=== PATIENT | female | born 1980 | race Caucasian/White ===

== ENCOUNTER 2017-07-14 21:16 | Emergency (ER) | payer MEDICAID, SELFPAY ==
[2017-07-14 21:17] VITALS: BP 124/81; PULSE 88; RESP 18; TEMP 36.7; O2SAT 98; BMI 32.9
--- NOTE | 2017-07-14 22:00 | RAD_ITS ---
STUDY: X-RAY - PELVIS AND LEFT HIP REASON FOR EXAM: Female, 36 years old. Injury TECHNIQUE: Radiological exam, hip, unilateral, with pelvis when performed; 2 or 3 views. COMPARISON: None. FINDINGS: There is a non-specific bowel gas pattern. Normal visualized soft tissue structures. Normal bilateral iliac wings, sacroiliac joints and visualized sacrum. Normal bilateral superior and inferior pubic rami. Normal bilateral ischial tuberosities. Normal visualized femoral head. Normal acetabulum. Normal hip joint. Subcortical cyst at the left femoral neck. Evidence of tubal ligation. Mild chronic stress-related changes at the symphysis pubis. RAD/Hip 2-3 Views with Pelvis IMPRESSION: No fracture Electronically Signed: Melquiades Stevenson MD at 22:38 EDT Tel , Service support ,
--- NOTE | 2017-07-14 22:15 | RAD_ITS ---
STUDY: X-RAY - LEFT KNEE REASON FOR EXAM: Female, 36 years old. Injury TECHNIQUE: 4 view(s) of the knee. COMPARISON: None. FINDINGS: Normal visualized distal femur. Normal visualized proximal tibia and fibula. Normal proximal tibiofibular articulation. Normal medial femorotibial compartment. Normal lateral femorotibial compartment. Normal patellofemoral articulation. The soft tissue structures are unremarkable. RAD/Knee 4 or More Views IMPRESSION: Normal x-ray examination of the knee. Electronically Signed: Melquiades Stevenson MD at 22:36 EDT Tel , Service support ,
--- NOTE | 2017-07-14 22:50 | ED.VISSUMM ---
- ER Visit Summary Date of Service: 07/14/17 Chief Complaint: [Left leg injury] History of Present Illness: The patient is a 36 F [presents to the emergency department with injury to her left leg that occurred over a week ago. Patient states that she was rollerskating and fell multiple times. Patient states that she did the splits several times when she fell. Her leg really started bothering her that evening. Patient states that at times it feels like her knee catches and clicks and pops. Patient feels like the pain all starts behind her kneecap and kind of radiates towards her left hip. At times patient having a hard time getting comfortable secondary to pain.] Physical Examination: [HEENT-PERRLA, EOMI. Cranial nerves II through XII grossly intact. TMs clear. Mucous membranes moist. No adenopathy. Cardiovascular-regular rate and rhythm without murmur or ectopy Lungs-clear to auscultation, chest wall stable without crepitus or subcu emphysema Abdomen-normoactive bowel sounds, soft, nontender, no rebound or rigidity, no peritoneal signs. Extremities-intact ?4, normal range of motion, normal pulses, atraumatic]. Left knee-atraumatic, no effusion, no erythema or warmth. Ligamentously stable. Pain with flexion extension however no clicking or popping noted. Neurovascularly intact distally. Test Results: [X-rays of the left knee and left hip were obtained which were negative for fractures] Emergency Department Course and Treatment: [Patient was given a knee immobilizer. Patient refused crutches.] I suspect possibly a meniscal injury. Treatment Plan: [Patient will be given a prescription for [place] and referral to orthopedics on-call.] Disposition: [Discharged to home in stable condition.] Impression: [Left knee sprain-possible internal derangement] This note was generated with [employer] dictation software. It may contain incorrect words, spelling, and punctuation that were not noted in review of the chart prior to signing ED Disposition - Plan for ED Patient: Chief Complaint: Lower Extremity Injury Referrals: [facility] Doctor,Out of [Primary Care Provider] -
--- NOTE | 2017-07-14 22:53 | ED.DCSUM_ITS ---
- ER Visit Summary Date of Service: 07/14/17 Chief Complaint: [Left leg injury] History of Present Illness: The patient is a 36 F [presents to the emergency department with injury to her left leg that occurred over a week ago. Patient states that she was rollerskating and fell multiple times. Patient states that she did the splits several times when she fell. Her leg really started bothering her that evening. Patient states that at times it feels like her knee catches and clicks and pops. Patient feels like the pain all starts behind her kneecap and kind of radiates towards her left hip. At times patient having a hard time getting comfortable secondary to pain.] Physical Examination: [HEENT-PERRLA, EOMI. Cranial nerves II through XII grossly intact. TMs clear. Mucous membranes moist. No adenopathy. Cardiovascular-regular rate and rhythm without murmur or ectopy Lungs-clear to auscultation, chest wall stable without crepitus or subcu emphysema Abdomen-normoactive bowel sounds, soft, nontender, no rebound or rigidity, no peritoneal signs. Extremities-intact ?4, normal range of motion, normal pulses, atraumatic]. Left knee-atraumatic, no effusion, no erythema or warmth. Ligamentously stable. Pain with flexion extension however no clicking or popping noted. Neurovascularly intact distally. Test Results: [X-rays of the left knee and left hip were obtained which were negative for fractures] Emergency Department Course and Treatment: [Patient was given a knee immobilizer. Patient refused crutches.] I suspect possibly a meniscal injury. Treatment Plan: [Patient will be given a prescription for [place] and referral to orthopedics on-call.] Disposition: [Discharged to home in stable condition.] Impression: [Left knee sprain-possible internal derangement] This note was generated with [employer] dictation software. It may contain incorrect words, spelling, and punctuation that were not noted in review of the chart prior to signing ED Disposition - Plan for ED Patient: Chief Complaint: Lower Extremity Injury Referrals: [facility] Doctor,Out of [Primary Care Provider] -
--- NOTE | 2017-07-14 22:55 | DCINST.ED_ITS ---
ED Disposition - Plan for ED Patient: Chief Complaint: Lower Extremity Injury Instructions: ED Meniscal Injury Knee Poss Prescriptions: Hydrocodone Bitart/Apap 5-325 [Drury 5/325] 1 - 2 tab PO Q4H PRN PRN 5 Days #20 tab PRN Reason: Pain Referrals: [facility],Out of [Primary Care Provider] - Melquiades Murcia MD [STAFF PHYSICIAN] - 3-5 Days
[2017-07-14] MEDS: HYDROcodone Bitartrate/Apap 5/325 Tablet PO (23:05)
[2017-07-14 23:06] VITALS: BP 101/71; PULSE 78; RESP 17; O2SAT 97
== END 2017-07-14 23:13 | disposition home or self-care (01) ==
LOC: ED 22:38
PROVIDERS: Emergency Provider Emergency Medicine
DX: S83.92XA Sprain of unspecified site of left knee, initial encounter (principal); V00.121A Fall from non-in-line roller-skates, initial encounter; Y93.51 Activity, roller skating (inline) and skateboarding; Y92.9 Unspecified place or not applicable; Y99.8 Other external cause status; J45.909 Unspecified asthma, uncomplicated; Z72.0 Tobacco use
CPT/HCPCS: 73502; 73564; 99283

== ENCOUNTER 2017-09-10 18:36 | Emergency (ER) | payer MEDICAID, SELFPAY ==
[2017-09-10 18:38] VITALS: BP 135/81; PULSE 85; RESP 16; TEMP 36.9; O2SAT 96; BMI 31.4
--- NOTE | 2017-09-10 19:06 | ED.VISSUMM ---
- ER Visit Summary Date of Service: 09/10/17 Chief Complaint: Right shoulder pain History of Present Illness: The patient is a 37 F with right shoulder pain. Patient felt a pop at work today in her right shoulder. She does not want to file a claim with the [employer]. Pain is worse when she moves her shoulder. It does not radiate beyond her arm. No weakness or numbness. No prior history of this. Physical Examination: Afebrile and vitals unremarkable. Neck nontender. Inspection normal. Tender to palpation of the right trap, right AC joint, and with range of motion of her shoulder. Range of motion intact. She is neurovascular intact distally. Good strength and sensation. Test Results: X-rays pending. Emergency Department Course and Treatment: Received [place] and Flexeril while awaiting results. X-rays were negative. Patient was discharged. External as needed. Tylenol and anti-inflammatories as needed at home. Treatment Plan: As above Disposition: Discharged Impression: 1. Right shoulder pain This note was generated with [employer] dictation software. It may contain incorrect words, spelling, and punctuation that were not noted in review of the chart prior to signing ED Disposition - Plan for ED Patient: Chief Complaint: Upper Extremity Injury Referrals: [facility] Doctor,Out of [Primary Care Provider] -
--- NOTE | 2017-09-10 19:10 | RAD_ITS ---
STUDY: X-RAY - RIGHT SHOULDER REASON FOR EXAM: Female, 37 years old. Pain TECHNIQUE: 4 view(s) of the shoulder. COMPARISON: None. FINDINGS: There is no evidence of fracture or dislocation. There are no significant degenerative changes. There are no radiodense foreign bodies. RAD/Shoulder min 2 Views IMPRESSION: No fracture or dislocation. Electronically Signed: Melquiades Ashby, at 19:46 EDT Tel , Service support ,
[2017-09-10] MEDS: HYDROcodone Bitartrate/Apap 5/325 Tablet PO (19:29)
--- NOTE | 2017-09-10 20:08 | ED.DEP ---
ED Disposition - Plan for ED Patient: Chief Complaint: Upper Extremity Injury Instructions: ED Sprain Shoulder Prescriptions: Cyclobenzaprine [Flexeril] 10 mg PO TID PRN #20 tab PRN Reason: Muscle Spasm Referrals: [facility],Out of [Primary Care Provider] -
[2017-09-10 20:52] VITALS: PULSE 68; RESP 18
== END 2017-09-10 20:55 | disposition home or self-care (01) ==
LOC: ED 19:07
PROVIDERS: Emergency Provider Emergency Medicine
DX: M25.511 Pain in right shoulder (principal); J45.909 Unspecified asthma, uncomplicated; Z72.0 Tobacco use
CPT/HCPCS: 73030; 99283

== ENCOUNTER 2017-11-19 13:35 | Emergency (ER) | payer MEDICAID, SELFPAY ==
[2017-11-19 13:36] VITALS: BP 116/78; PULSE 90; RESP 18; TEMP 36.6; O2SAT 99; BMI 31.9
--- NOTE | 2017-11-19 14:41 | ED.VISSUMM ---
- ER Visit Summary Date of Service: 11/19/17 Chief Complaint: Left shoulder pain History of Present Illness: The patient is a 37 F with 3 day history of left shoulder pain unknown injury. She has no radiation no chest pain or shortness of breath no fever or chills no cough. Physical Examination: Heart is regular lungs are clear abdomen soft and nontender she has left shoulder pain to palpation, no pain over the AC joint or pains over the deltoid and rotator cuff muscles, she has pain with abduction greater than 90?. Emergency Department Course and Treatment: Patient has a shoulder impingement syndrome clinically, should be treated with steroids and muscle relaxants. Discharge stable condition Impression: [Left shoulder impingement syndrome] This note was generated with [employer] dictation software. It may contain incorrect words, spelling, and punctuation that were not noted in review of the chart prior to signing ED Disposition - Plan for ED Patient: Disposition: Home or Assisted Living Chief Complaint: Chest Other Instructions: What Is Impingement Syndrome? Prescriptions: Naproxen [Naprosyn] 500 mg PO BID PRN #20 tab Cyclobenzaprine [Flexeril] 10 mg PO TID PRN #20 tab PRN Reason: Muscle Spasm Referrals: [facility] Doctor,Out of [Primary Care Provider] - 3-5 Days
--- NOTE | 2017-11-19 14:44 | ED.DCSUM_ITS ---
- ER Visit Summary Date of Service: 11/19/17 Chief Complaint: Left shoulder pain History of Present Illness: The patient is a 37 F with 3 day history of left shoulder pain unknown injury. She has no radiation no chest pain or shortness of breath no fever or chills no cough. Physical Examination: Heart is regular lungs are clear abdomen soft and nontender she has left shoulder pain to palpation, no pain over the AC joint or pains over the deltoid and rotator cuff muscles, she has pain with abduction greater than 90?. Emergency Department Course and Treatment: Patient has a shoulder impingement syndrome clinically, should be treated with steroids and muscle relaxants. Discharge stable condition Impression: [Left shoulder impingement syndrome] This note was generated with [employer] dictation software. It may contain incorrect words, spelling, and punctuation that were not noted in review of the chart prior to signing ED Disposition - Plan for ED Patient: Disposition: Home or Assisted Living Chief Complaint: Chest Other Instructions: What Is Impingement Syndrome? Prescriptions: Naproxen [Naprosyn] 500 mg PO BID PRN #20 tab Cyclobenzaprine [Flexeril] 10 mg PO TID PRN #20 tab PRN Reason: Muscle Spasm Referrals: [facility] Doctor,Out of [Primary Care Provider] - 3-5 Days
[2017-11-19] MEDS: Triamcinolone Acetonide 40 MG/ML Vial IM (15:39)
== END 2017-11-19 15:44 | disposition home or self-care (01) ==
PROVIDERS: Emergency Provider Emergency Medicine; Family Provider Nurse Practitioner Family; PCP Nurse Practitioner Family
DX: M25.812 Other specified joint disorders, left shoulder (principal); J45.909 Unspecified asthma, uncomplicated; Z72.0 Tobacco use
CPT/HCPCS: 96372; 99282

== ENCOUNTER 2018-11-30 13:27 | Emergency (ER) | payer SELFPAY ==
[2018-11-30 13:28] VITALS: BP 103/61; PULSE 84; RESP 16; TEMP 36.3; O2SAT 96; BMI 28.3
--- NOTE | 2018-11-30 15:11 | ED.DCSUM_ITS ---
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 no sob, cough, fever, rash, abd pain, n/v/d, leg pain/swelling. Narrative: Patient states she was lifting some heavy boxes and did not feel anything acute but had onset of this discomfort later. Has not tried anything for the pain. No recent long travel, hospitalization, or surgery. No history of blood clots. Past Medical History - Allergies and Home Meds Allergies/Adverse Reactions: Allergies diphenhydramine [From Benadryl] Allergy (Verified 11/30/18 13:28) Hives doxycycline Allergy (Verified 11/30/18 13:28) Hives ketorolac [From Toradol] Allergy (Verified 11/30/18 13:28) Hives tramadol Allergy (Verified 11/30/18 13:28) Hives Primary Care Physician: Yuko Benjamin NP-C [Primary Care Provider] - Past Medical History: None Lives: Spouse/ Significant Other Smoking Status: Current every day smoker Review of Systems General: Denies: Chills, Fever, Sweats Cardiovascular: Reports: Chest pain. Denies: Palpitations, Heart racing Respiratory: Denies: Dyspnea, Cough, Sputum, Orthopnea Gastrointestinal: Denies: Abdominal pain, Nausea, Vomiting, Diarrhea, Melena, Hematochezia Musculoskeletal: Reports: Back pain. Denies: Neck pain, Swelling, Extremity Pain Skin: Denies: Rash, Wounds Neurological: Denies: Headache, Weakness, Numbness Physical Exam Vital Signs/Narrative: Vital Signs Temp Pulse Resp BP Pulse Ox 11/30/18 13:28 97.3 F L 84 16 103/61 96 Inital Vital Signs reviewed: Yes General: Well nourished, Well developed, No Acute Distress - Well-appearing, conversive Head: Normocephalic, Atraumatic Respiratory: No distress, CTA bilaterally, Chest tenderness Abdomen: Soft, Nontender, Nondistended, Normal bowel sounds. Negative for: Hepatomegaly Back: Normal Inspection - No rash, - - Tender and right thoracic paraspinal musculature, around 1 or 2 intercostal spaces toward the anterior axillary line. No crepitance or subcutaneous emphysema.. Negative for: CVA tenderness, Spinal tenderness Extremities: Nontender, No edema. Negative for: Calf Tenderness Skin: Normal color, No rash, No Trauma Neurological: Alert, Oriented x3, Cranial nerves II-XII grossly intact, Normal Strength, Normal Sensation Psychological: Normal affect, Normal Mood Diagnostic/Tx/Re-eval - Medical Decision Making Consistent with intercostal strain. She has no symptoms or findings that would suggest this is not musculoskeletal at this time. Advised supportive care, she has lots of allergies but states she can tolerate ibuprofen which is what I recommend for this, not narcotics. Patient is asking for a note for work so that she does not have to go to work and do more heavy lifting today. I advised that she can do whatever she can tolerate. ED Disposition - Plan for ED Patient: Disposition: Home or Assisted Living Diagnosis: Intercostal muscle strain Instructions: Chest Wall Strain Prescriptions: Ibuprofen 600 mg PO Q8H PRN #15 tab PRN Reason: Pain Prescription Printed Referrals: Yuko Benjamin, [employer] [Primary Care Provider] - 1 Week if not improving
[2018-11-30] MEDS: Ibuprofen 600 MG Tablet PO (15:20)
== END 2018-11-30 15:25 | disposition home or self-care (01) ==
LOC: ED 15:21
PROVIDERS: Emergency Provider Emergency Medicine; Family Provider Nurse Practitioner Family; PCP Nurse Practitioner Family
DX: S29.011A Strain of muscle and tendon of front wall of thorax, initial encounter (principal); X50.0XXA Overexertion from strenuous movement or load, initial encounter; Y93.9 Activity, unspecified; Y92.9 Unspecified place or not applicable; F17.200 Nicotine dependence, unspecified, uncomplicated
CPT/HCPCS: 99283

== ENCOUNTER 2019-02-04 19:00 | Emergency (ER) | payer SELFPAY ==
[2019-02-04 19:00] VITALS: BP 100/74; PULSE 86; RESP 18; TEMP 36.7; O2SAT 95; BMI 31.1
--- NOTE | 2019-02-04 19:40 | RAD_ITS ---
STUDY: X-RAY - RIGHT WRIST REASON FOR EXAM: Female, 38 years old. Pain after fall TECHNIQUE: 3 view(s) of the wrist were obtained. COMPARISON: None. FINDINGS: Normal visualized distal radius and ulna. Normal radiocarpal articulation. Normal distal radioulnar articulation. Normal carpal bones. Normal carpal articulations. Normal carpometacarpal articulation of the thumb. Normal second through fifth carpometacarpal articulations. Normal visualized metacarpal bones. The soft tissue structures are unremarkable. RAD/Wrist min 3 Views IMPRESSION: Normal x-ray examination of the wrist. Electronically Signed: Freddie Jaffe MD at 20:10 EDT , Service support ,
--- NOTE | 2019-02-04 19:47 | ED.DCSUM_ITS ---
- ER Visit Summary Date of Service: 02/04/19 Chief Complaint: Right wrist injury History of Present Illness: The patient is a 38 F who presents with a right wrist injury that occurred today. Patient states she slipped and fell down some steps. Patient landed on her right wrist. Patient states the pain is worse over the right wrist and hand. Patient states the pain is over the ulnar aspect of the wrist and fifth metacarpal area. Patient states the pain is worse with grasping things and with movement. Patient admits to some tingling in her fingers that is intermittent. Patient denies any weakness. Physical Examination: Vital signs are stable. Patient is afebrile. Patient is in no acute distress. Musculoskeletal exam reveals tenderness over the ulnar aspect of the right wrist and over the fifth metacarpal of the right hand. There is no bony crepitance or step-off. Range of motion was slightly limited in flexion and extension of the right wrist. There is no obvious deformity noted. Sensation was intact to light touch in all digits. Capillary refill is less than 2 seconds in all digits. Radial pulses are equal bilaterally. Test Results: X-rays of the right wrist were obtained. There is no acute fracture. This was interpreted by the radiologist and myself. Emergency Department Course and Treatment: Patient was instructed to ice and elevate the right upper extremity. Patient was given an Noah wrap. Patient was instructed to take [id number] ibuprofen or Tylenol as needed for pain. Patient was instructed to follow-up with her primary care physician in 5 to 7 days. Patient understood and was agreeable with the plan. All questions were answered. Disposition: Discharge home Impression: Right wrist injury This note was generated with [employer] dictation software. It may contain incorrect words, spelling, and punctuation that were not noted in review of the chart prior to signing ED Disposition - Plan for ED Patient: Disposition: Home or Assisted Living Diagnosis: Contusion of right wrist, initial encounter Instructions: CONTUSION, Upper Extremity Referrals: Yuko Benjamin NP-C [Primary Care Provider] - 5-7 Days
[2019-02-04 21:20] VITALS: BP 102/60; PULSE 87; RESP 18; O2SAT 96
== END 2019-02-04 21:21 | disposition home or self-care (01) ==
PROVIDERS: Emergency Provider Emergency Medicine; Family Provider Nurse Practitioner Family; PCP Nurse Practitioner Family
DX: S60.211A Contusion of right wrist, initial encounter (principal); W10.9XXA Fall (on) (from) unspecified stairs and steps, initial encounter; Y93.9 Activity, unspecified; Z72.0 Tobacco use
CPT/HCPCS: 73110; 99282

== ENCOUNTER 2019-03-16 19:40 | Emergency (ER) | payer OTHER, SELFPAY ==
[2019-03-16 19:42] VITALS: BP 95/69; PULSE 90; RESP 18; TEMP 36.8; O2SAT 99; BMI 30.2
--- NOTE | 2019-03-16 20:12 | ED.DCSUM_ITS ---
- ER Visit Summary Date of Service: 03/16/19 Chief Complaint: Chest and head congestion History of Present Illness: The patient is a 38 F who presents with congestion in her head and chest that his gotten worse over the past couple days. Patient states other coworkers have had similar symptoms. Patient is wondering if it is related to 1 of the chemicals that they are working with. Patient states she is supposed to be wearing a respirator but her company has not provided that for her. Patient denies any fevers or chills. Patient admits to a sore throat. Patient admits to cough but denies any sputum production. Physical Examination: Vital signs are stable. Patient is afebrile. Patient is in no acute distress. Oral mucosa is pink and moist. Airway is patent. Neck is supple. Trachea is midline. No JVD. Tympanic membranes are clear bilaterally. Heart was regular rate and rhythm. Lungs are clear and equal bilateral. Abdomen is soft. Bowel sounds are normal. There is no tenderness. Cranial nerves II through XII are intact. There are no focal motor or sensory deficits noted. Test Results: PA and lateral chest x-rays obtained. There is no acute cardiopulmonary process. This is interpreted by myself and the radiologist. Emergency Department Course and Treatment: Patient was advised that this is most likely an upper respiratory infection. Patient was instructed to take [id number]-haarugb decongestants as needed. Patient was instructed to follow-up with her primary care physician in 5 to 7 days. Patient understood and was agreeable with the plan. All questions were answered. Disposition: Discharge home Impression: Upper respiratory infection This note was generated with [employer] dictation software. It may contain incorrect words, spelling, and punctuation that were not noted in review of the chart prior to signing ED Disposition - Plan for ED Patient: Disposition: Home or Assisted Living Diagnosis: Upper respiratory infection Instructions: URI, Viral, No Abx (Adult) Referrals: Yuko Benjamin NP-C [Primary Care Provider] - 3-5 Days
--- NOTE | 2019-03-16 20:15 | RAD_ITS ---
STUDY: X-RAY CHEST REASON FOR EXAM: Female, 38 years old. Cough TECHNIQUE: Frontal and lateral views COMPARISON: None. FINDINGS: The lungs are clear and expanded. There is no demonstrated pleural abnormality. Normal size heart. Normal mediastinum and olamide. Normal visualized pulmonary arteries. Normal visualized aortic arch and descending thoracic aorta. Normal visualized thoracic spine. Normal visualized ribs, clavicles, and shoulders. There is no demonstrated abnormality of the visualized soft tissue structures of the upper abdomen. RAD/Chest PA and Lateral IMPRESSION: Normal x-ray examination of the chest. Electronically Signed: Fidel Esquivel DO at 20:29 EST Tel [phone], Service support ,
[2019-03-16 21:44] VITALS: RESP 16
== END 2019-03-16 21:45 | disposition home or self-care (01) ==
PROVIDERS: Emergency Provider Emergency Medicine; Family Provider Nurse Practitioner Family; PCP Nurse Practitioner Family
DX: J06.9 Acute upper respiratory infection, unspecified (principal); F17.200 Nicotine dependence, unspecified, uncomplicated
CPT/HCPCS: 71046; 99283

== ENCOUNTER 2021-04-24 15:16 | Emergency (ER) | payer SELFPAY ==
[2021-04-24 15:17] VITALS: BP 123/99; PULSE 100; RESP 18; TEMP 36.1; O2SAT 99; BMI 26.4
--- NOTE | 2021-04-24 15:31 | ED.VIS.BACK ---
HPI History of Present Illness Chief Complaint: Back Informant: patient Narrative Narrative: Patient complains of lower lumbar back pain. It radiates slightly to the upper buttocks on both sides but no further. She has no radicular symptoms down her legs. She states it hurts to sit on the toilet but it hurts in her back. She has no problems urinating or moving her bowels or any change. She has no trauma or fall. She has no recent infections, skin infections, dental infections, fevers or chills. No history of cancers or tumors. No weight loss or gain. She has not had weakness or numbness. Patient does have a history of some back pain. She uses Tylenol and ibuprofen even though she does have an allergy to Toradol. She has an inversion table at home that she will use. She is also been trying heat and cold as well as lidocaine spray. She has had benefit from Flexeril before but it makes her sleepy. She thought this was an allergy but I explained that this is a normal occurrence with Flexeril. Pain is generally better if she sits in certain positions. It is a little worse with moving and twisting. PFSH PFSH Home Medications fluticasone furoate-vilanterol [Breo Ellipta 200-25 Mcg INH] 1 ea IH DAILY 11/19/17 [History Last Taken Unknown] cyclobenzaprine 10 mg PO BID PRN #10 tab 04/24/21 [Rx Last Taken Unknown] naproxen 500 mg PO BID #14 tab 04/24/21 [Rx Last Taken Unknown] Allergy/AdvReac Type Severity Reaction Status Date / Time diphenhydramine Allergy Hives Verified 04/24/21 15:20 [From Benadryl] doxycycline Allergy Hives Verified 04/24/21 15:20 ketorolac [From Toradol] Allergy Hives Verified 04/24/21 15:20 tramadol Allergy Hives Verified 04/24/21 15:20 Social History Smoking Status: Current every day smoker ROS ROS ED Constitutional Constitutional ED: Denies chills or fever(s) ENT ENT ED: Denies rhinorrhea or sore throat Cardiovascular Cardiovascular: Denies chest pain Respiratory/Chest Respiratory/Chest: Denies dyspnea or sputum Gastrointestinal Gastrointestinal: Denies abdominal pain, constipation, diarrhea, melena, nausea or vomiting Genitourinary Genitourinary ED: Denies dysuria, hematuria or urinary frequency Musculoskeletal Musculoskeletal: Reports back pain; Denies arthralgias, myalgias or neck pain Integumentary Denies abscess or rash Neurologic Neurologic: Denies paresthesias or weakness Endocrine Endocrinology: Denies polydipsia or polyuria Hematologic/Lymphatic Hematologic/Lymphatic: Denies easy bleeding or easy bruising Allergic/Immunologic Allergic/Immunologic ED: Denies mouth swelling or urticaria EXAM Physical Exam Const Vital Signs: 04/24/21 15:17 Temperature 96.9 F L Temperature Source Temporal Pulse Rate 100 Respiratory Rate 18 Blood Pressure 123/99 H Blood Pressure Mean 107 Pulse Ox 99 Oxygen Delivery Method Room Air Positive well nourished and well developed General Appearance ED: well developed and NAD HEENT Reports moist mucous membranes Eyes EOMs intact bilaterally Resp normal respiratory effort and clear to auscultation bilaterally Cardio regular rate and regular rhythm GI normal to inspection, nondistended, normoactive bowel sounds, soft to palpation, non-tender and non-distended Back/Spine normal to inspection Back/Spine Narrative: Patient has some mild nonfocal tenderness diffusely approximately L to through the sacral area. But there is no skin changes. No erythema. No ulcers or vesicles. No percussion tenderness. No buttock or sciatic notch tenderness. Reflexes strength and sensation are normal. General Back: Negative for CVA tenderness Extremity normal to inspection General Extremety ED: Negative for edema or tenderness General Extremity: Negative for edema Neuro Deep Tendon Reflexes: Rt Patellar (L4): 1+, Lt Patellar (L4): 1+, Rt Ankle (S1): 1+ and Lt Ankle (S1): 1+ Deep Tendon Reflexes Back: Rt Patellar (L4): 1+, Lt Patellar (L4): 1+, Rt Ankle (S1): 1+ and Lt Ankle (S1): 1+ Psych mental status grossly normal Skin no rashes or lesions noted and no wounds MDM MDM MDM Narrative Medical decision making narrative: Patient has what sounds to be exacerbation of musculoskeletal back pain. She has no red flags of back pain. She is afebrile here. Neurologically she is intact by exam and history. We will give her pain meds here as well as to go. We discussed returning with bowel bladder dysfunction weakness or numbness or any other concerns. Discharge Plan Triage Chief Complaint: Back ED Provider: Mehdi Romano Dx/Rx/DC Orders Clinical Impression: Lumbar back pain Instructions: ED Back Pain (Acute or Chronic) Prescriptions: New cyclobenzaprine 10 mg tablet 10 mg PO BID PRN (Reason: muscle spasm) Qty: 10 RF: 0 naproxen 500 MG tablet 500 mg PO BID Qty: 14 RF: 0 No Action fluticasone furoate-vilanterol [Breo Ellipta] 1 EACH blister with device 1 ea IH DAILY RF: 0 Primary Care Provider: Yuko Benjamin NP Referrals: Yuko Benjamin NP, M[employer]INE T[employer] OPERATOR-C [Primary Care Provider] - 3-5 Days if not improving Disposition Disposition: Home, Self Care
[2021-04-24] MEDS: Morphine 4 MG/ML Syringe IM (15:41)
[2021-04-24] MEDS: Orphenadrine 60 MG/2 ML Ampul IM (15:42)
== END 2021-04-24 16:02 | disposition home or self-care (01) ==
PROVIDERS: Emergency Provider Emergency Medicine; PCP Nurse Practitioner Family
DX: M54.50 Low back pain, unspecified (principal); F17.200 Nicotine dependence, unspecified, uncomplicated
CPT/HCPCS: 96372; 99282

== ENCOUNTER 2021-04-26 17:04 | Emergency (ER) | payer SELFPAY ==
[2021-04-26 17:05] VITALS: BP 128/91; PULSE 86; RESP 16; TEMP 36.2; O2SAT 99; BMI 24.5
--- NOTE | 2021-04-26 17:29 | EDS_ITS ---
HPI History of Present Illness Chief Complaint: Back Informant: patient Narrative Narrative: Patient returns with lower back pain. I saw the patient couple days ago. She states it started Wednesday. Got little worse . She was seen here. She thought it was getting better but then it seems to be getting worse. She states it is worse with any motion or twisting. It is worse if she bends forward. The pain is still a low lumbar on both sides. It radiates to the top of the buttock. It does not radiate further. No bowel or bladder dysfunction. No dysuria urgency frequency or hematuria. She has had no nausea vomiting. No fevers or chills. She does now state that Wednesday morning she slipped and almost fell but caught herself. She states she felt herself pull her back but it really was not hurting Wednesday morning. Is started hurting later in the evening. Staying still makes it better. Meds help a little bit but does not completely resolve it. She has had a history of back pain before. She sometimes uses exercise or inversion. [facility] Medical History Back pain Home Medications fluticasone furoate-vilanterol [Breo Ellipta 200-25 Mcg INH] 1 ea IH DAILY 11/19/17 [History Last Taken Unknown] cyclobenzaprine 10 mg PO BID PRN #10 tab 04/24/21 [Rx Last Taken Unknown] naproxen 500 mg PO BID #14 tab 04/24/21 [Rx Last Taken Unknown] oxycodone-acetaminophen [Percocet] 1 tab PO Q6H PRN 3 Days #10 tab 04/26/21 [Rx Last Taken Unknown] sulfamethoxazole-trimethoprim [Bactrim DS] 1 tab PO BID #14 tab 04/26/21 [Rx Last Taken Unknown] Allergy/AdvReac Type Severity Reaction Status Date / Time diphenhydramine Allergy Hives Verified 04/26/21 17:07 [From Benadryl] doxycycline Allergy Hives Verified 04/26/21 17:07 ketorolac [From Toradol] Allergy Hives Verified 04/26/21 17:07 tramadol Allergy Hives Verified 04/26/21 17:07 Social History Smoking Status: Current every day smoker tobacco type: cigarettes ROS ROS ED Constitutional Constitutional ED: Denies chills or fever(s) ENT ENT ED: Denies rhinorrhea or sore throat Cardiovascular Cardiovascular: Denies chest pain Respiratory/Chest Respiratory/Chest: Denies dyspnea or sputum Gastrointestinal Gastrointestinal: Denies abdominal pain, diarrhea, nausea or vomiting Genitourinary Genitourinary ED: Denies dysuria, hematuria or urinary frequency Musculoskeletal Musculoskeletal: Reports back pain; Denies arthralgias, myalgias or neck pain Integumentary Denies rash Neurologic Neurologic: Denies headache(s), paresthesias or weakness Endocrine Endocrinology: Denies polydipsia or polyuria Hematologic/Lymphatic Hematologic/Lymphatic: Denies easy bleeding or easy bruising Allergic/Immunologic Allergic/Immunologic ED: Denies mouth swelling or urticaria EXAM Physical Exam Const Vital Signs: 04/26/21 17:05 Temperature 97.1 F L Temperature Source Temporal Pulse Rate 86 Respiratory Rate 16 Blood Pressure 128/91 H Blood Pressure Mean 103 Pulse Ox 99 Oxygen Delivery Method Room Air Patient is comfortable sitting on bed. Positive well nourished, well developed and obese General Appearance ED: well developed and NAD Nutritional Appearance: obese HEENT Reports moist mucous membranes Negative for trauma Eyes General Eye ED: Negative for pale conjunctiva or scleral icterus Neck no JVD Resp normal respiratory effort and clear to auscultation bilaterally Effort and Inspection: Negative for pain with movement Auscultation: Negative for rales, rhonchi or wheezes Cardio regular rate and regular rhythm GI normal to inspection, nondistended, normoactive bowel sounds, soft to palpation and non-tender Back/Spine normal to inspection Back/Spine Narrative: Patient has some mild very low lumbar and sacral area paraspinal and spinal tenderness. No skin changes. No swelling. No asymmetry. No real buttock tenderness. Extremity normal to inspection General Extremety ED: Negative for edema or tenderness General Extremity: Negative for edema Neuro Deep Tendon Reflexes: Rt Patellar (L4): 2+, Lt Patellar (L4): 2+, Rt Ankle (S1): 1+ and Lt Ankle (S1): 1+ Deep Tendon Reflexes Back: Rt Patellar (L4): 2+, Lt Patellar (L4): 2+, Rt Ankle (S1): 1+ and Lt Ankle (S1): 1+ Psych mental status grossly normal Skin no rashes or lesions noted MDM MDM MDM Narrative Medical decision making narrative: Patient given Percocet before even though she has allergy to tramadol. I will give her one here. She only has 1 prescription for hydrocodone April 2019 on her online prescription report. Because this is her second visit, we will do x-rays and urinalysis. She still has no red flags of back pain. This started after she suddenly twisted and almost fell. I think this is a myofascial strain. Patient will be rechecked. X-rays show degenerative changes but no acute process. Urine is suspicious for UTI. She also has some trichomonas. I will treat for these. However, she has no CVA tenderness. I do not think her pain is coming from this. I think her p ain is from her muscular strain. This patient had a single prescription for narcotic in April 2019. I will give her a few pain pills. She will continue her Naprosyn and cyclobenzaprine. We have encouraged ice. Patient stated to somebody that her pain was 15 out of 10. But I walk in the room she sitting quietly in the bed she talks quietly she turned around to look at me and she looks completely nontoxic. I do not feel that this is consistent with pain 15 out of 10. I do not doubt that she has pain and I am happy to treat this but that is not a accurate value. Lab Data Labs: Laboratory Results - last 24 hr 04/26/21 17:35 Urine Color Yellow Urine Clarity Cloudy Urine pH 5.0 Ur Specific [place] 1.020 Urine Protein Negative Urine Glucose (UA) Normal Urine Ketones Negative Urine Occult Blood 10 H Urine Nitrite Positive H Urine Bilirubin Negative Urine Urobilinogen Normal Ur Leukocyte Esterase 100 H Urine RBC 0 SEEN Urine WBC 10-25 SEEN Ur Squamous Epith Cells 5-10 SEEN Urine Bacteria 3+ Urine Mucus 0 SEEN Urine Trichomonas 0-5 SEEN Urine Test Negative Radiography Diagnostic Testing: Clinical Impression(s) from Imaging Studies Lumbar Spine X-Ray 04/26/21 17:55 IMPRESSION: Degenerative changes, as above. Electronically Signed: Ld Green MD (Brooks) at 18:24 EST , Service support , Discharge Plan Triage Chief Complaint: Back ED Provider: Mehdi Romano Dx/Rx/DC Orders Clinical Impression: Lumbar back pain, Urinary tract infection, Trichomonal infection Instructions: Urinary Tract Infections in Women, ED Back Pain (Acute or Chronic) Prescriptions: New oxycodone-acetaminophen [Percocet] 5-325 mg tablet 1 tab PO Q6H PRN (Reason: pain) 3 Days Qty: 10 RF: 0 sulfamethoxazole-trimethoprim [Bactrim DS] 800-160 mg tablet 1 tab PO BID Qty: 14 RF: 0 No Action Breo Ellipta 1 EACH blister with device 1 ea IH DAILY RF: 0 cyclobenzaprine 10 mg tablet 10 mg PO BID PRN (Reason: muscle spasm) Qty: 10 RF: 0 naproxen 500 MG tablet 500 mg PO BID Qty: 14 RF: 0 Primary Care Provider: Yuko Benjamin NP Referrals: Yuko Benjamin NP, MEAT TRIMMER-C [Primary Care Provider] - 3-5 Days Disposition Disposition: Home, Self Care
[2021-04-26] MEDS: oxyCODONE 5 MG Tablet PO (17:34)
[2021-04-26 17:40] LABS: Mucous, Urine 0 SEEN /hpf (<or=2+); Red Blood Cells-Urine 0 SEEN /hpf (0-5)
--- NOTE | 2021-04-26 17:55 | RAD_ITS ---
STUDY: X-RAY - LUMBAR SPINE REASON FOR EXAM: Female, 40 years old. pain TECHNIQUE: 3 view(s) of the lumbar spine were obtained. COMPARISON: None FINDINGS: Normal lumbar lordosis. There is no substantial scoliosis. There is a normal alignment of the vertebrae. Normal vertebral bodies and endplates. There is transitional anatomy of L5 with rudimentary disc at the lumbosacral junction. There is no demonstrated fracture. The soft tissue structures are unremarkable. RAD/Lumbar Spine 2 or 3 Views IMPRESSION: Degenerative changes, as above. Electronically Signed: Ld Green MD (Brooks) at 18:24 EST , Service support ,
[2021-04-26 17:58] LABS: Color, Urine Yellow (Yellow); Glucose, Dipstick Normal (Normal); Ketone-Dipstick Negative (Negative); Leukocyte Esterase-Dipstick 100 /ul (Negative); Nitrite-Dipstick Positive (Negative); Occult Blood-Urine 10 /ul (Negative); Protein-Dipstick Negative (Negative); Urine Bilirubin Dipstick Negative (Negative); Urine Clarity Cloudy (Clear); Urine Urobilinogen Normal (Normal)
[2021-04-26 18:01] LABS: Internal QC Validated? YES +Cl - CLEAR BKGD; Pregnancy, Urine Negative Negative
--- NOTE | 2021-04-26 18:06 | ED.RN ---
PT STATES PAIN MEDICATION HAS NOT BEEN HELPFUL. STATES PAIN IS STILL ABOVE A TEN. DR LEVIN
[2021-04-26 18:47] LABS: Bacteria 3+ /hpf (None Seen); White Blood Cells 10-25 SEEN /hpf (0-5)
[2021-04-26 18:50] LABS: Squamous Epithelial Cells - UA 5-10 SEEN /hpf (5-10)
[2021-04-26 18:51] LABS: Trichomonas 0-5 SEEN /hpf (None Seen)
[2021-04-26 19:19] VITALS: BP 134/72; PULSE 78; RESP 18; TEMP 36.9; O2SAT 97
[2021-04-26] MEDS: metroNIDAZOLE 500 MG Tablet 2000 MG PO (19:20)
== END 2021-04-26 19:22 | disposition home or self-care (01) ==
PROVIDERS: Emergency Provider Emergency Medicine; PCP Nurse Practitioner Family
DX: N39.0 Urinary tract infection, site not specified (principal); A59.9 Trichomoniasis, unspecified; M54.59 Other low back pain; F17.210 Nicotine dependence, cigarettes, uncomplicated; M47.816 Spondylosis without myelopathy or radiculopathy, lumbar region; Z79.1 Long term (current) use of non-steroidal anti-inflammatories (NSAID); Z79.51 Long term (current) use of inhaled steroids; Z79.899 Other long term (current) drug therapy
CPT/HCPCS: 72100; 81001; 81025; 99283

== ENCOUNTER 2021-06-01 18:54 | Emergency (ER) | payer MEDICAID, SELFPAY ==
[2021-06-01 18:55] VITALS: BP 113/75; PULSE 95; RESP 16; TEMP 36.2; O2SAT 99; BMI 34.3
--- NOTE | 2021-06-01 19:08 | RAD_ITS ---
INDICATION: injury EXAMINATION/TECHNIQUE: X-RAY - XR Pelvis 1 or 2 Views COMPARISON: None. FINDINGS: PELVIC BONES: No displaced fracture, destructive or sclerotic lesions. Note that overlapping bowel shadows may however obscure fine detail. Sacroiliac joints are unremarkable. No widening of the pubic symphysis. HIPS: The articular structures are unremarkable. No displaced fracture seen in this frontal view. SOFT TISSUES: No soft tissue swelling or gas. RAD/Pelvis 1 or 2 Views IMPRESSION: No evidence of displaced pelvic or hip fracture. Electronically Signed: Neil Sweeney MD at 20:25 EST ,
--- NOTE | 2021-06-01 19:09 | EDS_ITS ---
HPI History of Present Illness Chief Complaint: Fall Informant: patient Onset/Context/Timing Onset: Today Mechanism/Context: Fall Current Severity: Moderate Maximum Severity: Moderate Narrative Narrative: Patient presents after falling down 3 steps. She was leaving to go help her mother shovel snow when she fell down 3 steps. She injured her right buttock region. She recently had a flare of low back pain that she states just calmed down over the last couple days. She denies loss of bowel or bladder control. She did take ibuprofen about 2 and half hours prior to arrival. [facility] Medical History Back pain Home Medications fluticasone furoate-vilanterol [Breo Ellipta 200-25 Mcg INH] 1 ea IH DAILY 11/19/17 [History Last Taken Unknown] oxycodone 5 mg PO Q6H PRN 3 Days #10 tab 06/01/21 [Rx Last Taken Unknown] Allergy/AdvReac Type Severity Reaction Status Date / Time diphenhydramine Allergy Hives Verified 06/01/21 18:54 [From Benadryl] doxycycline Allergy Hives Verified 06/01/21 18:54 ketorolac [From Toradol] Allergy Hives Verified 06/01/21 18:54 tramadol Allergy Hives Verified 06/01/21 18:54 Social History Smoking Status: Current every day smoker tobacco type: cigarettes ROS ROS ED Constitutional Constitutional ED: Denies chills or fever(s) Eyes Eyes: Denies change in vision ENT ENT ED: Denies sore throat Cardiovascular Cardiovascular: Denies chest pain Respiratory/Chest Respiratory/Chest: Denies cough or dyspnea Gastrointestinal Gastrointestinal: Denies abdominal pain, diarrhea, nausea or vomiting Genitourinary Genitourinary ED: Denies dysuria Musculoskeletal Musculoskeletal: Reports back pain Integumentary Denies rash Neurologic Neurologic: Denies headache(s), paresthesias or weakness Psychiatric Psychiatric: Denies anxiety or depression Allergic/Immunologic Allergic/Immunologic ED: Denies urticaria EXAM Physical Exam Const Vital Signs: 06/01/21 18:55 Temperature 97.1 F L Temperature Source Temporal Pulse Rate 95 Respiratory Rate 16 Blood Pressure 113/75 Blood Pressure Mean 87 Pulse Ox 99 Oxygen Delivery Method Room Air Positive well nourished and well developed General Appearance ED: well developed Eyes PERRL and EOMs intact bilaterally Neck full ROM Chest Wall inspection of chest normal and palpation of chest normal Resp normal respiratory effort and clear to auscultation bilaterally Cardio regular rhythm Rate: regular rate GI normal to inspection, nondistended, normoactive bowel sounds and non-tender Palpation: soft Back/Spine Back/Spine Narrative: Abrasions over the upper right buttock near the sciatic notch. Area is tender to palpation. Extremity normal to inspection Neuro oriented x3, moves all extremities and no sensory deficits noted Sensorium / Orientation: alert Motor Exam: strength 5/5 throughout Psych mental status grossly normal MDM MDM MDM Narrative Medical decision making narrative: Patient had taken ibuprofen prior to arrival. She is given a tab of oxycodone here. X-rays of the lumbar spine and pelvis are ordered. Radiography Diagnostic Testing: Clinical Impression(s) from Imaging Studies Pelvis X-Ray 06/01/21 19:08 IMPRESSION: No evidence of displaced pelvic or hip fracture. Electronically Signed: Neil Sweeney MD at 20:25 EST , Lumbar Spine X-Ray 06/01/21 19:25 IMPRESSION: Normal x-ray examination of the lumbar spine. Electronically Signed: Osman Macdonald MD at 20:13 EST , Treatment and Re-Evaluation Comments:: X-rays per my interpretation show no acute fracture. Radiology in terpretation is reviewed and agrees. I did do an [facility] report. Patient's only had one prescription in the past year. She will be given a short course of oxycodone and encouraged to take Tylenol and ibuprofen at home. Discharge Plan Triage Chief Complaint: Fall ED Provider: Sammi Page Dx/Rx/DC Orders Clinical Impression: Fall, Back contusion Instructions: ED Back Contusion Prescriptions: New oxycodone 5 mg tablet 5 mg PO Q6H PRN (Reason: pain) 3 Days Qty: 10 RF: 0 No Action Breo Ellipta 1 EACH blister with device 1 ea IH DAILY RF: 0 Primary Care Provider: Yuko Benjamin NP Referrals: Yuko Benjamin NP, CARROT BUNCHER-C [Primary Care Provider] - 1 Week if not improving Disposition Disposition: Home, Self Care
--- NOTE | 2021-06-01 19:25 | RAD_ITS ---
STUDY: X-RAY - LUMBAR SPINE REASON FOR EXAM: Female, 40 years old. injury TECHNIQUE: 3 view(s) of the lumbar spine were obtained. COMPARISON: None FINDINGS: Normal lumbar lordosis. There is no substantial scoliosis. There is a normal alignment of the vertebrae. Normal vertebral bodies and endplates. Normal disc space heights. There is no demonstrated fracture. No visualized fracture or compression deformity. Bilateral adnexal clips are present in the pelvis. The soft tissue structures are unremarkable. RAD/Lumbar Spine 2 or 3 Views IMPRESSION: Normal x-ray examination of the lumbar spine. Electronically Signed: Osman Macdonald MD at 20:13 EST ,
[2021-06-01] MEDS: oxyCODONE 5 MG Tablet PO (19:38)
[2021-06-01 21:08] VITALS: PULSE 98; RESP 17; O2SAT 99
== END 2021-06-01 21:09 | disposition home or self-care (01) ==
PROVIDERS: Emergency Provider Emergency Medicine; PCP Nurse Practitioner Family; Visit Provider Emergency Medicine
DX: S20.229A Contusion of unspecified back wall of thorax, initial encounter (principal); W10.9XXA Fall (on) (from) unspecified stairs and steps, initial encounter; Y93.01 Activity, walking, marching and hiking; Y99.8 Other external cause status; F17.210 Nicotine dependence, cigarettes, uncomplicated
CPT/HCPCS: 72100; 72170; 99283

== ENCOUNTER 2021-07-20 20:57 | Emergency (ER) | payer MEDICAID, SELFPAY ==
[2021-07-20 20:58] VITALS: BP 147/88; PULSE 81; RESP 16; TEMP 35.7; O2SAT 96; BMI 30.2
--- NOTE | 2021-07-20 21:20 | EX.ED.DYSGE1 ---
HPI History of Present Illness Chief Complaint: Back Informant: patient Onset/Context/Timing Onset: Days Location: Low back Maximum Severity: Severe Worsened by: Weather changes Associated Symptoms Associated Symptoms: None Narrative Narrative: Patient has a history of low back pain. This came on gradually, spontaneously. Worse with the weather. Worse with movement. She is using [id number] remedies and symptomatic care at home but it is not helping. No new injuries. No blood thinners. No immune compromise. No history of back procedures. No GI, , or [employer] symptoms. No weakness or numbness. Prior similar symptoms: Yes Recent Illness/Hospitalization: No PFSH PFSH Medical History Back pain Home Medications fluticasone furoate-vilanterol [Breo Ellipta 200-25 Mcg INH] 1 ea IH DAILY 11/19/17 [History Last Taken Unknown] oxycodone 5 mg PO Q6H PRN 3 Days #10 tab 06/01/21 [Rx Last Taken Unknown] cyclobenzaprine 10 mg PO TID PRN #20 tablet 07/20/21 [Rx Last Taken Unknown] Allergy/AdvReac Type Severity Reaction Status Date / Time diphenhydramine Allergy Hives Verified 07/20/21 21:00 [From Benadryl] doxycycline Allergy Hives Verified 07/20/21 21:00 ketorolac [From Toradol] Allergy Hives Verified 07/20/21 21:00 tramadol Allergy Hives Verified 07/20/21 21:00 Social History Smoking Status: Current every day smoker tobacco type: cigarettes ROS ROS ED Constitutional Constitutional ED: Denies chills or fever(s) Eyes Eyes: Denies change in vision ENT ENT ED: Denies ear pain Cardiovascular Cardiovascular: Denies chest pain Respiratory/Chest Respiratory/Chest: Denies dyspnea Gastrointestinal Gastrointestinal: Denies abdominal pain Genitourinary Genitourinary ED: Denies dysuria Musculoskeletal Musculoskeletal: Reports back pain Integumentary Denies rash Neurologic Neurologic: Denies headache(s) Psychiatric Psychiatric: Denies depression Endocrine Endocrinology: Denies polyuria EXAM Physical Exam Const Vital Signs: 07/20/21 20:58 Temperature 96.3 F L Temperature Source Temporal Pulse Rate 81 Respiratory Rate 16 Blood Pressure 147/88 H Blood Pressure Mean 107 Pulse Ox 96 Oxygen Delivery Method Room Air Positive well nourished and well developed General Appearance ED: well developed HEENT Negative for trauma Eyes EOMs intact bilaterally Resp normal respiratory effort Cardio regular rate GI normal to inspection, nondistended, normoactive bowel sounds, non-tender and non-distended Palpation: soft Back/Spine no CVA tenderness Back/Spine Narrative: Diffuse lumbar spinal tenderness Extremity normal to inspection General Extremety ED: Negative for edema or tenderness General Extremity: Negative for edema Neuro no sensory deficits noted Sensorium / Orientation: alert Motor Exam: strength 5/5 throughout Psych mental status grossly normal Skin no rashes or lesions noted MDM MDM MDM Narrative Medical decision making narrative: No indication for imaging. Patient was treated with morphine and Norflex here for myofascial back pain. Continue using [id number] remedies at home. We will add Flexeril. Patient will follow up with primary care in the next couple weeks. Has ongoing pain and may need a referral to pain management. No indication for diagnostic testing or imaging emergently. Patient be discharged home. Impression #1 chronic back pain Discharge Plan Triage Chief Complaint: Back ED Provider: Andrew Crocker Dx/Rx/DC Orders Instructions: ED Back Pain (Acute or Chronic) Prescriptions: New cyclobenzaprine 10 mg tablet 10 mg PO TID PRN (Reason: Muscle Spasm) Qty: 20 RF: 0 No Action Breo Ellipta 1 EACH blister with device 1 ea IH DAILY RF: 0 oxycodone 5 mg tablet 5 mg PO Q6H PRN (Reason: pain) 3 Days Qty: 10 RF: 0 Primary Care Provider: Yuko Benjamin NP Referrals: Yuko Benjamin NP, BELL STAFF-C [Primary Care Provider] - Disposition Disposition: Home, Self Care
[2021-07-20] MEDS: Orphenadrine 60 MG/2 ML Ampul IM (21:29)
[2021-07-20] MEDS: morphine 10 MG/ML Syringe 4 MG SC (21:30)
[2021-07-20 21:45] VITALS: BP 138/48; PULSE 78; RESP 16; O2SAT 97
== END 2021-07-20 22:02 | disposition home or self-care (01) ==
PROVIDERS: Emergency Provider Emergency Medicine; PCP Nurse Practitioner Family; Visit Provider Emergency Medicine
DX: M54.50 Low back pain, unspecified (principal); G89.29 Other chronic pain; F17.210 Nicotine dependence, cigarettes, uncomplicated
CPT/HCPCS: 96372; 99282

== ENCOUNTER → 2021-12-06 | Outpatient (CLI) | payer MEDICAID, SELFPAY ==
--- NOTE | 2021-12-06 07:52 | MRI_ITS ---
HISTORY: pain TECHNIQUE: Multiplanar and multisequence MR images of the lumbar spine were obtained without intravenous contrast. 120 images. COMPARISON: XR 06/01/2021. FINDINGS: VERTEBRAE: Vertebral body heights maintained. No significant bone marrow signal abnormality. ALIGNMENT: Minimal 2 mm retrolisthesis of L2-3. CONUS: Normal morphology and position of the conus medullaris at L1. INTERVERTEBRAL DISCS: T12-L1, L1-2: No significant posterior disc protrusion, central canal stenosis, or foraminal narrowing. L2-3: Minimal disc bulge and pseudodisc appearance without significant central canal stenosis or foraminal narrowing. L3-4, L4-5: No significant posterior disc protrusion, central canal stenosis, or foraminal narrowing. L5-S1: Intervertebral disc space narrowing or developmental rudimentary disc with partial fusion across the intervertebral disc space. Minimal posterior disc bulge osteophyte complex resulting in minimal narrowing of the thecal sac and very mild bilateral foraminal narrowing. SOFT TISSUES: Posterior subcutaneous edema noted. MRI/Spine Lumbar (Routine) IMPRESSION: Very mild degenerative disc disease without significant spinal canal stenosis. Electronically Signed: Socorro Alvarado MD at 10:10 EDT ,
== END | disposition home or self-care (01) ==
LOC: MRI 07:51
PROVIDERS: PCP Nurse Practitioner Family; Referring Provider Orthopaedic Surgery; Visit Provider Orthopaedic Surgery
DX: M51.26 Other intervertebral disc displacement, lumbar region (principal)
CPT/HCPCS: 72148

== ENCOUNTER 2021-12-22 16:14 | Emergency (ER) | payer MEDICAID, SELFPAY ==
[2021-12-22 16:14] VITALS: BP 118/91; PULSE 93; RESP 16; TEMP 36.4; O2SAT 100; BMI 30.2
--- NOTE | 2021-12-22 17:41 | ED.VIS.BACK ---
HPI History of Present Illness Chief Complaint: Back Detail of Chief Complaint: Bilateral low back pain Informant: patient Onset/Context/Timing Onset: Month(s) Injury: lifting, twisting, bending, direct trauma, fall, assault, repetitive motion and work related Timing: Continuous Quality: Dull and Aching Location: Lumbar Current Severity: Mild Maximum Severity: Moderate Worsened by: improves with Movement, Ambulation, Bending and Lifting Relieved by: Nothing Associated Symptoms Associated Symptoms: - (Patient denies saddle paresthesia or anesthesia. Patient denies foot drop. Patient denies buckling of her knees.); Negative for Numbness, Tingling, Radiation to Right Leg, Radiation to Left Leg, Fever, Abdominal Pain, Dysuria, Unable to Ambulate, Unable to Transfer, Urinary Retention, Urinary Incontinence, Constipation or Fecal Incontinence Narrative Narrative: Patient is a 41-year-old woman who presents with bilateral low back pain and hip pain which she localizes to the left and right greater trochanteric region. She denies any radicular symptoms. She denies symptoms concerning for cauda equina. There is no symptoms to suggest discitis or osteomyelitis. There is no recent dental procedure. She does not have history of drug abuse. She states she is taking NSAIDs with no improvement. Patient states she had recent imaging. Patient had MRI of her lumbar spine on December 06. MRI revealed minimal degenerative changes. There was no other abnormality noted. Prior similar symptoms: Yes Recent Illness/Hospitalization: No PFSH PFSH Medical History Back pain Home Medications fluticasone furoate 200 mcg-vilanterol 25 mcg/dose inhalation powder (Breo Ellipta) 1 ea IH PRN PRN SHORTNESS OF BREATH 11/19/17 [History Last Taken Unknown] Allergy/AdvReac Type Severity Reaction Status Date / Time diphenhydramine Allergy Hives Verified 12/22/21 17:14 [From Benadryl] doxycycline Allergy Hives Verified 12/22/21 17:14 ketorolac [From Toradol] Allergy Hives Verified 12/22/21 17:14 tramadol Allergy Hives Verified 12/22/21 17:14 Surgical History Hx of section Hx of cholecystectomy Social History (Updated 12/22/21 @ 17:[address] Alvaro Ayon MD) household members: significant other Smoking Status: Current every day smoker tobacco type: cigarettes substance use type: does not use ROS ROS ED Constitutional Constitutional ED: Denies chills, fever(s), subjective, sweats or weight loss Eyes Eyes: Denies blurry vision, change in vision or diplopia ENT ENT ED: Denies ear pain, rhinorrhea or sore throat Cardiovascular Cardiovascular: Denies chest pain, orthopnea, palpitations, paroxysmal nocturnal dyspnea or racing heartbeat Respiratory/Chest Respiratory/Chest: Denies dyspnea, dyspnea on exertion, orthopnea, paroxysmal nocturnal dyspnea or sputum Gastrointestinal Gastrointestinal: Denies abdominal pain, constipation, diarrhea, melena, nausea or vomiting Genitourinary Genitourinary ED: Denies dysuria, hematuria or urinary frequency Musculoskeletal Musculoskeletal: Reports back pain; Denies arthralgias, myalgias or neck pain Integumentary Denies abscess, Abrasions or rash Neurologic Neurologic: Denies headache(s), paresthesias or weakness Hematologic/Lymphatic Hematologic/Lymphatic: Denies easy bleeding or easy bruising EXAM Physical Exam Const Vital Signs: 12/22/21 16:14 Temperature 97.5 F L Temperature Source Temporal Pulse Rate 93 Respiratory Rate 16 Blood Pressure 118/91 H Blood Pressure Mean 100 Pulse Ox 100 Oxygen Delivery Method Room Air Positive well nourished, well developed, obese and unkempt General Appearance ED: unkempt, well developed and NAD; Negative for pallor Nutritional Appearance: obese HEENT Reports moist mucous membranes HEENT Narrative: Head is atraumatic normocephalic. Ears normal. Nares patent. Eyes PERRL and EOMs intact bilaterally General Eye ED: Negative for pale conjunctiva or scleral icterus Neck no lymphadenopathy, supple and no JVD Resp normal respiratory effort and clear to auscultation bilaterally Cardio regular rate, regular rhythm, S1 normal heart sound, S2 normal heart sound and no murmurs GI normal to inspection, nondistended, normoactive bowel sounds, soft to palpation, non-tender, non-distended and no masses Back/Spine normal to inspection; Negative for no thoracic nor lumbar tenderness Back/Spine Narrative: Bilateral lumbar tenderness. There is no midline tenderness. General Back: Negative for CVA tenderness Lumbar Spine / Lower Back: ROM limited and straight leg raise negative bilaterally Extremity normal to inspection Extremity Narrative: Patient reports swelling of her ankles. There is no pitting edema. There is no asymmetry, swelling, discoloration, leg vein distention, palpable cords or tenderness along the distribution of the deep venous system. Neuro oriented x3 and no sensory deficits noted Neuro Narrative: EHLs intact. 5/5 strength with plantar and dorsiflexion of the foot. EHLs intact. Patient has normal sensation over L3, L4, L5 and S1 dermatome. Sensorium / Orientation: alert Motor Exam: strength 5/5 throughout Deep Tendon Reflexes: Rt Patellar (L4): 1+, Lt Patellar (L4): 1+, Rt Ankle (S1): 1+ and Lt Ankle (S1): 1+ Deep Tendon Reflexes Back: Rt Patellar (L4): 1+, Lt Patellar (L4): 1+, Rt Ankle (S1): 1+ and Lt Ankle (S1): 1+ Plantar Reflex: Downgoing: bilateral (There is no clonus.) Psych Appearance: unkempt Skin no rashes or lesions noted and no wounds General Skin Exam: Negative for jaundice or pallor MDM MDM MDM Narrative Medical decision making narrative: Patient with exacerbation of chronic low back pain and muscular etiology. Since patient had an MRI approximately 2 weeks ago that revealed no significant abnormality we will discuss treatment plan with patient. Patient was informed that the cause of her back pain is musculoskeletal and that her weight is contributing to this. Patient states the pain is worse when she stands. I informed her based on her body habitus standing would cause increased pain. The best thing she can do is be more active and lose weight. Discharge Plan Triage Chief Complaint: Back ED Provider: Alvaro Ayon Dx/Rx/DC Orders Clinical Impression: Acute exacerbation of chronic low back pain Prescriptions: No Action fluticasone furoate-vilanterol [Breo Ellipta] 1 EACH blister with device 1 ea IH PRN PRN (Reason: SHORTNESS OF BREATH) Primary Care Provider: Barbara Borrero Referrals: Barbara Borrero, [Primary Care Provider] - Keep Shaun appointment Disposition Disposition: Home, Self Care
== END 2021-12-22 18:00 | disposition home or self-care (01) ==
PROVIDERS: Emergency Provider Emergency Medicine; PCP Family Medicine; Visit Provider Emergency Medicine
DX: M54.50 Low back pain, unspecified (principal); F17.210 Nicotine dependence, cigarettes, uncomplicated; M25.559 Pain in unspecified hip; G89.29 Other chronic pain
CPT/HCPCS: 99282

== ENCOUNTER → 2022-08-12 | Outpatient (CLI) | payer MEDICAID, SELFPAY ==
[2022-08-12 15:34] LABS: Absolute Lymphocyte Count 3.65 X10^3/uL (0.83-4.51); Absolute Neutrophil Count 6.6 X10^3/uL (2.0-7.7); Basophil# 0.07 X10^3/uL; Basophil% 0.6 % (0-1); Eosinophil# 0.17 X10^3/uL; Eosinophils% 1.5 % (0-5); Hematocrit 45.4 % (37-47); Hemoglobin 14.6 g/dL (12.0-15.0); Lymphocyte # 3.65 X10^3/ul (0.83-4.51); Lymphocyte % 32.9 % (19-41); Mean Corp Hgb Conc 32.2 g/dL (32-36); Mean Corpuscular Hgb 29.4 pg (27.0-32.0); Mean Corpuscular Volume 91.3 fL (81-99); Mean Platelet Vol. 11.1 fl (6.2-12.0); Monocyte# 0.61 X10^3/uL; Monocyte% 5.5 % (0-10); NRBC Flagged by Analyzer 0 % (0-5); Neutrophil # 6.57 X10^3/uL (2.7-7.7); Neutrophil % 59.1 % (47-70); Platelet Count 261 K/mm3 (150-450); RBC Distribution Width CV 13.2 % (11.6-14.6); RBC Distribution Width SD 44.1 fl (35.1-43.9); Red Blood Count 4.97 M/mm3 (4.2-5.4); White Blood Count 11.1 K/mm3 (4.4-11.0)
[2022-08-12 16:31] LABS: ALB/GLOB Ratio 0.9 RATIO (0.9-2.4); AST(SGOT) 21 U/L (15-37); Alanine Aminotransfer ALT/SGPT 28 U/L (13-56); Albumin, Serum 3.6 g/dL (3.2-5.0); Alkaline Phosphatase 76 U/L (45-117); Anion Gap 5 (5-15); BUN 12 mg/dL (7-18); BUN/Creat Ratio 11.9 RATIO (10-20); Chloride 108 mmol/L (98-107); Cholesterol 223 mg/dL (200); Creatinine, Serum 1.01 mg/dL (0.55-1.02); EST Glomerular Filtration Rate 65 mL/min (>60); Est Glom Filt Rate - Afr Amer 78 mL/min (>60); Globulin 4.2 g/dL (2.2-4.2); Glucose 82 mg/dL (74-106); High Density Lipoprotein 27 mg/dL; Potassium 4.2 mmol/L (3.5-5.1); Protein, Total 7.8 g/dL (6.4-8.2); Sodium Level 135 mmol/L (136-145); Thyroid Stim Hormone (TSH) 1.06 uIU/mL (0.358-3.74); Triglycerides 182 mg/dL; Very Low Density Lipoprotein 36 mg/dL (5-40)
[2022-08-12 16:32] LABS: Hemoglobin A1c 5.6 % (3.8-5.6)
== END | disposition home or self-care (01) ==
LOC: MFPLAB 11:40
PROVIDERS: PCP Family Medicine; Visit Provider Family Medicine
DX: M79.89 Other specified soft tissue disorders (principal); Z68.35 Body mass index [BMI] 35.0-35.9, adult
CPT/HCPCS: 36415; 80053; 80061; 83036; 84443; 85025

== ENCOUNTER 2023-07-08 16:18 | Emergency (ER) | payer SELFPAY ==
[2023-07-08 16:19] VITALS: BP 123/85; PULSE 71; RESP 18; TEMP 35.8; O2SAT 94; BMI 34.2
--- NOTE | 2023-07-08 17:35 | EX.ED.VIS.HA ---
HPI <JOSÉ MIGUEL Neff - Last Filed: 07/08/23 18:08> History of Present Illness Chief Complaint: Ear Problem Narrative Narrative: Patient presenting today due to a headache that started around 1:30 PM this afternoon. She reports that she has pain to the left side of her head and left ear. She does have a history of headaches and reports that this is consistent with previous headaches that she has had. She denies sudden onset and reports that it was more of a gradual onset. She reports that she normally goes to [facility] and received, pain shots for her headaches. Shorts that she did have an episode of nausea and vomiting today. She denies any fevers, chills, neck pain, and visual changes. PFSH <JOSÉ MIGUEL Neff - Last Filed: 07/08/23 18:08> PFSH Medical History Back pain Home Medications fluticasone furoate 200 mcg-vilanterol 25 mcg/dose inhalation powder (Breo Ellipta) 1 ea IH PRN PRN SHORTNESS OF BREATH 11/19/17 [History Last Taken Unknown] metoclopramide HCl 5 mg tablet (Reglan) 5 mg PO DAILY #10 tabs 07/08/23 [Rx Last Taken Unknown] Allergy/AdvReac Type Severity Reaction Status Date / Time diphenhydramine Allergy Hives Verified 07/08/23 16:19 [From Benadryl] doxycycline Allergy Hives Verified 07/08/23 16:19 ketorolac [From Toradol] Allergy Hives Verified 07/08/23 16:19 tramadol Allergy Hives Verified 07/08/23 16:19 Surgical History Hx of section Hx of cholecystectomy Social History household members: significant other Smoking Status: Current every day smoker tobacco type: cigarettes substance use type: does not use ROS <JOSÉ MIGUEL Neff - Last Filed: 07/08/23 18:08> ROS ED Constitutional Constitutional ED: Denies chills or fever(s) Eyes Eyes: Denies change in vision or diplopia ENT ENT ED: Reports ear pain left Cardiovascular Cardiovascular: Denies chest pain or palpitations Respiratory/Chest Respiratory/Chest: Denies cough or dyspnea Gastrointestinal Gastrointestinal: Reports nausea and vomiting; Denies abdominal pain or diarrhea Genitourinary Genitourinary ED: Denies dysuria, hematuria or urinary urgency Musculoskeletal Musculoskeletal: Denies arthralgias or myalgias Integumentary Denies rash Neurologic Neurologic: Reports headache(s); Denies paresthesias or weakness EXAM <JOSÉ MIGUEL Neff - Last Filed: 07/08/23 18:08> Physical Exam Const Vital Signs: 07/08/23 16:19 Temperature 96.5 F L Temperature Source Temporal Pulse Rate 71 Respiratory Rate 18 Blood Pressure 123/85 H Blood Pressure Mean 97 Pulse Ox 94 Oxygen Delivery Method Room Air Positive well nourished, well developed and no apparent distress General Appearance ED: well developed HEENT Reports normocephalic, head/scalp atraumatic and TM's clear Tympanic Membrane ED: Yes TM's clear Mouth ED: Yes moist mucous membranes normal Eyes PERRL and EOMs intact bilaterally Neck full ROM and supple Chest Wall inspection of chest normal Resp normal respiratory effort and clear to auscultation bilaterally Cardio regular rate and regular rhythm GI soft to palpation, non-tender, non-distended and no masses Back/Spine normal ROM and normal to inspection Extremity normal to inspection and full ROM Neuro oriented x3, CN's II-XII intact bilaterally, moves all extremities, no focal motor deficits and no sensory deficits noted Sensorium / Orientation: awake and alert Motor Exam: strength 5/5 throughout Psych mental status grossly normal and thought process normal Skin no rashes or lesions noted and no wounds <Dr. Bandar Dominguez, - Last Filed: 07/08/23 21:59> Physical Exam Const Vital Signs: 07/08/23 16:19 Temperature 96.5 F L Temperature Source Temporal Pulse Rate 71 Respiratory Rate 18 Blood Pressure 123/85 H Blood Pressure Mean 97 Pulse Ox 94 Oxygen Delivery Method Room Air MDM <JOSÉ MIGUEL Neff - Last Filed: 07/08/23 18:08> [facility] Narrative Medical decision making narrative: Patient presenting due to left-sided head pain started around 1:30 PM. She is also reporting ear pain, no signs of otitis media, otitis externa, or mastoiditis. She is well-appearing and in no acute distress. She reports these headaches are consistent with her previous headaches. No sudden onset in symptoms, this does not sound consistent with a SAH. She does not have any neck pain, no meningeal signs. I did offer to give her a migraine cocktail but she does not want an IV. She does report a history of allergy to Toradol and Benadryl. She was given p.o. Tylenol and Reglan. She is requesting a prescription for Reglan and a work note. These will be given to her. Return instructions discussed and she will be discharged home in stable condition. She is comfortable with plan. <Dr. Bandar Dominguez, DO - Last Filed: 07/08/23 21:59> [facility] Narrative Medical decision making narrative: Patient presenting due to left-sided head pain started around 1:30 PM. She is also reporting ear pain, no signs of otitis media, otitis externa, or mastoiditis. She is well-appearing and in no acute distress. She reports these headaches are consistent with her previous headaches. No sudden onset in symptoms, this does not sound consistent with a SAH. She does not have any neck pain, no meningeal signs. I did offer to give her a migraine cocktail but she does not want an IV. She does report a history of allergy to Toradol and Benadryl. She was given p.o. Tylenol and Reglan. She is requesting a prescription for Reglan and a work note. These will be given to her. Return instructions discussed and she will be discharged home in stable condition. She is comfortable with plan. ED attending note: I evaluated the patient in conjunction with the REGGIE. I agree with his/her statements and above findings. I have personally performed a face to face assessment of the patient and have reviewed the REGGIE Note. I performed a substantive portion of the visit including all aspects of the following. I personally saw the patient performed chart review, physical exam, reviewed labs, imaging (if obtained), and formulated a treatment and management plan. This note was generated with [employer] software. It may contain incorrect words, spelling, and punctuation that were not noted in review of the chart prior to signing. Discharge Plan Triage Chief Complaint: Ear Problem Other Complaint: Headache ED Midlevel Provider: Kelly Reddy ED Provider: Bandar Dominguez Dx/Rx/DC Orders Clinical Impression: Headache, Earache on left Instructions: ED Earache Without Infection (Adult), ED, Migraine (Classical) Prescriptions: New metoclopramide HCl [Reglan] 5 mg tablet 5 mg PO DAILY Qty: 10 0RF No Action fluticasone furoate-vilanterol [Breo Ellipta] 1 EACH blister with device 1 ea IH PRN PRN (Reason: SHORTNESS OF BREATH) Stand Alone Forms: ED Work / School Excuse Primary Care Provider: Barbara Borrero Referrals: Barbara Borrero, DO [Primary Care Provider] - 5-7 Days Activity Restrictions/Additional Instructions: Follow-up with your PCP and return for worsening of symptoms. Disposition Disposition: Home, Self Care Discharge Date/Time: 07/08/23 17:54
[2023-07-08] MEDS: Metoclopramide 5 MG TABLET PO (17:51)
[2023-07-08] MEDS: Acetaminophen 325 MG Tablet 650 MG PO (17:51)
== END 2023-07-08 17:54 | disposition home or self-care (01) ==
PROVIDERS: Emergency Provider Emergency Medicine; PCP Family Medicine; Visit Provider Emergency Medicine
DX: H92.02 Otalgia, left ear (principal); R51.9 Headache, unspecified; F17.210 Nicotine dependence, cigarettes, uncomplicated; Z90.49 Acquired absence of other specified parts of digestive tract
CPT/HCPCS: 99284